=== PATIENT | female | born 1970 | race Caucasian/White ===

== ENCOUNTER 2017-04-15 19:57 | Emergency (ER) ==
[2017-04-15 20:07] VITALS: BP 106/81; TEMP 98; BMI 29.2
[2017-04-15] MEDS ORDERED: SODIUM CHLORIDE 1,000 ML IV STA (20:20)
[2017-04-15] MEDS ORDERED: PROTONIX IV IVP STA (20:20)
[2017-04-15] MEDS ORDERED: ZOFRAN 4 MG/2 ML IVP STA (20:21)
[2017-04-15] MEDS ORDERED: DILAUDID 1 MG/ML SYRINGE IVP STA ×2 (20:27→22:29)
--- NOTE | 2017-04-15 20:32 | ED.PDOC ---
General ED Provider: Dr. JOSE LARA Chief Complaint: Nausea/Vomiting Stated Complaint: Pateint is a 47 year old female with a two year history of colon cancer who has undergone chemotherapy and radiation therapy. She states that 7 days ago she started having nausea, vomiting and bloting. Vomit is foul smelling. Also complains of severe abdominal pain that is getting worse. Time Seen by Physician: 20:20 Mode of Arrival: Walk-In Information Source: Patient Exam Limitations: No limitations Primary Care Provider: BRUNILDA HARRISON Nursing and Triage Documentation Reviewed and Agree: Yes GI Complaint Exam - Abdominal Pain Complaint/Exam Onset: Gradual Duration: 1 week Symptoms Are: Still present Timing: Constant Location of Pain: Diffuse Radiates To: Reports: Back Character: Reports: Aching, Throbbing Aggravating: Reports: Movement, Food, Position, Eating Associated Signs and Symptoms: Reports: Constipation, Nausea, Vomiting Related History: Reports: Similar episode AAA Risk Factors: Reports: None Cardiac Risk Factors: Reports: None Ectopic Risk Factors: Reports: None Ovarian Torsion Risk Factors: Reports: None Surgical Obstruction Risk Factors: Reports: None Related Surgical History: Reports: None Patient Rh Status: Unknown Abdominal Findings: Present: Abdominal distention, McBur[place]'s Point tender. Absent: Rebound tenderness, Peritoneal signs, CVA Tenderness, Hernia, Inguinal swelling Differential Diagnoses: Bowel Obstruction, Constipation Review of Systems - Review Of Systems Constitutional: Reports: No symptoms Eyes: Reports: No symptoms Ears, Nose, Mouth, Throat: Reports: No symptoms Respiratory: Reports: No symptoms Cardiac: Reports: No symptoms GI: Reports: Abdominal pain, Constipated, Nausea, Vomiting : Reports: No symptoms Musculoskeletal: Reports: No symptoms Skin: Reports: No symptoms Neurological: Reports: No symptoms Endocrine: Reports: No symptoms Hematologic/Lymphatic: Reports: No symptoms All Other Systems: Reviewed and Negative Past Medical History - Past Medical History Endocrine: Reports: None Cardiovascular: Reports: None Respiratory: Reports: None Hematological: Reports: None Gastrointestinal: Reports: None Genitourinary: Reports: None Neuro/Psych: Reports: None Musculoskeletal: Reports: Back Pain Cancer: Reports: Colon Last Menstrual Period: POST MENOPAUSAL Other Pertinent Past Medical History: BACK SURGERY, C SECTION X2, GALLBLADDER, KNEE SURGERY, STAGE FOUR COLON CAN - Surgical History General Surgical History: Reports: , Orthopedic, Back Surgery, Other ( port placement on the Left upper chest.) - Family History Family History: Reports: Unknown - Social History Smoking Status: Current some day smoker Hx Substance Use: No Alcohol Screening: None - Immunizations Tetanus Shot up to Date: Yes Physical Exam - Physical Exam Appearance: Ill-appearing, Well-nourished Ill-appearing: Severe Pain Distress: Severe Eyes: HALIMA, EOMI, Conjunctiva clear ENT: Ears normal, Nose normal, Oropharynx normal Neck: Supple Respiratory: Airway patent, Breath sounds clear, Breath sounds equal, Respirations nonlabored Cardiovascular: Pulses normal, No rub, No murmur, Tachycardia GI/: No Organomegaly, Tender, Bowel sounds hyperactive Musculoskeletal: Normal strength, ROM intact, No edema, No calf tenderness Skin: Warm, Dry, Normal color Neurological: Sensation intact, Motor intact, Reflexes intact, Cranial nerves intact, Alert, Oriented Psychiatric: Anxious Interpretation - Radiology Interpretation Radiology Interpretation By: Radiologist Radiology Results: Positive Exam Interpreted: CT Scan (mets noted on the liver with calcifications. Tamia' s syndrome ) Physician Notification - Case Discussed Physician Notified: Dr Moreno Time of Notification: 22:00 (call surgery at [facility] ) Physician Notified: Dr. Goss Time of Notification: 22:40 (ok to transfer but admit to Dr. Harrison. ) Critical Care Note - Critical Care Note Total Time (mins): 15 Course - Course Hematology/Chemistry: 04/15/17 20:33 04/15/17 20:33 Orders, Labs, Meds: Lab Review 04/15/17 20:33 WBC 9.47 RBC 4.42 Hgb 11.6 L Hct 36.5 L MCV 82.6 MCH 26.2 L MCHC 31.8 RDW Coeff of Dawna 17.6 H Plt Count 516 H Immature Gran % (Auto) 0.6 Neut % (Auto) 74.7 Lymph % (Auto) 14.7 Gilchrist % (Auto) 9.5 Eos % (Auto) 0.1 Baso % (Auto) 0.4 Immature Gran # (Auto) 0.1 Neut # 7.1 H Lymph # 1.4 Gilchrist # 0.9 Eos # 0.0 Baso # 0.0 Sodium 134 L Potassium 3.0 L Chloride 92 L Carbon Dioxide 27 Anion Gap 18.0 BUN 20 H Creatinine 0.69 Estimated GFR (MDRD) 91.00 BUN/Creatinine Ratio 28.98 Glucose 119 H Calcium 9.8 Total Bilirubin 0.48 AST 29 ALT 13 Alkaline Phosphatase 123 H Total Protein 7.5 Albumin 2.6 L Globulin 4.9 Albumin/Globulin Ratio 0.53 Amylase 14 L Lipase 19 Orders Category Date Time Status ED IV/MEDIPORT/POWERPORT .ONCE EMERGENCY 04/15/17 20:20 Active AMYLASE Stat LAB 04/15/17 20:33 Completed CBC W/ AUTO DIFF Stat LAB 04/15/17 20:33 Completed COMPREHENSIVE METABOLIC PANEL Stat LAB 04/15/17 20:33 Completed LIPASE Stat LAB 04/15/17 20:33 Completed URINALYSIS C & S IF INDICATED Stat LAB 04/15/17 20:20 Uncollected 0.9 % Sodium Chloride [Saline Flush] MEDS 04/15/17 20:20 Ordered 1 syr IVF PRN PRN Hydromorphone HCl [Dilaudid 1 mg/ml Syringe] MEDS 04/15/17 20:27 Discontinued 1 mg IVP ONCE STA Hydromorphone HCl [Dilaudid 1 mg/ml Syringe] MEDS 04/15/17 22:29 Stat 1 mg IVP ONCE STA Ondansetron HCl/Pf [Zofran 4 mg/2 ml] MEDS 04/15/17 20:21 Discontinued 4 mg IVP ONCE STA Pantoprazole Sodium [Protonix IV] MEDS 04/15/17 20:20 Discontinued 40 mg IVP ONCE STA Ringers Lactated Solution [Lactated Ringers] 1,000 ml MEDS 04/15/17 22:41 Ordered Potassium Chloride Additive [Potassium Chloride 10 Meq Vial-Additive Only] 20 meq IV 125 mls/hr Sodium Chloride 0.9% [Sodium Chloride] 1,000 ml MEDS 04/15/17 20:[address] ABD/PEL WO RENAL STONE PROT Stat RADS 04/15/17 20:20 Completed Medications Generic Name Dose Route Start Last Admin Trade Name Freq PRN Reason Stop Dose Admin Potassium Chloride 20 meq/ 1,010 mls @ 125 mls/hr 04/15/17 22:41 Lactated Ringer's IV 04/16/17 06:45 .[id number] STA Sodium Chloride 1 syr 04/15/17 20:20 Saline Flush IVF PRN PRN To flush IV Discontinued Medications Generic Name Dose Route Start Last Admin Trade Name Freq PRN Reason Stop Dose Admin Hydromorphone HCl 1 mg 07/26/17 20:27 04/15/17 20:40 Dilaudid 1 Mg/Ml Syringe IVP 04/15/17 20:28 1 mg ONCE STA Administration Hydromorphone HCl 1 mg 04/15/17 22:29 Dilaudid 1 Mg/Ml Syringe IVP 04/15/17 22:30 ONCE STA Sodium Chloride 1,000 mls @ 1,000 mls/hr 04/15/17 20:20 04/15/17 20:41 Sodium Chloride IV 04/15/17 21:19 1,000 mls/hr BOLUS STA Administration Ondansetron HCl 4 mg 04/15/17 20:21 04/15/17 20:41 Zofran 4 Mg/2 Ml IVP 04/15/17 20:22 4 mg ONCE STA Administration Pantoprazole Sodium 40 mg 04/15/17 20:20 04/15/17 20:40 Protonix Iv IVP 04/15/17 20:21 40 mg ONCE STA Administration Vital Signs: Temp Pulse Resp BP Pulse Ox 04/15/17 19:57 98.0 F 124 H 20 106/81 92 L Departure - Departure Time of Disposition: 22:46 Disposition: TSF SHORT-TRM HOSP Discharge Problem: Tamia's syndrome Condition: Fair Pt referred to PMD for follow-up: Yes Allergies/Adverse Reactions: Allergies morphine Adverse Reaction (Severe, Verified 04/15/17 20:06) Abdominal Pain Home Medications: Ambulatory Orders Alprazolam [Xanax] 1 mg PO DAILY 04/15/17 Ondansetron HCl [Zofran] 4 mg PO DAILY 04/15/17 Oxycodone HCl/Acetaminophen [Percocet 10-325 mg Tablet] 10 mg PO DAILY 04/15/17 Promethazine HCl [Phenergan Tab] 25 mg PO DAILY 04/15/17 Pt. Stabilized Within Hospital's Capabilities/Transferred To: [facility] Transfer Form Completed: Yes Disposition Discussed With: Patient, Family
[2017-04-15 20:40] LABS: BASOPHILS % (AUTO) 0.4 % (0.0-3.0); EOSINOPHILS % (AUTO) 0.1 % (0.0-7.0); HEMATOCRIT 36.5 % (37.0-47.0); HEMOGLOBIN 11.6 g/dl (12.0-16.0); IMMATURE GRANULOCYTE % (AUTO) 0.6 % (0.0-5.0); LYMPHOCYTES # (AUTO) 1.4 K/uL (0.60-3.4); LYMPHOCYTES % (AUTO) 14.7 (10.0-50.0); MEAN CORPUSCULAR HEMOGLOBIN 26.2 pg (27.0-31.0); MEAN CORPUSCULAR HGB CONC 31.8 (31.8-35.4); MEAN CORPUSCULAR VOLUME 82.6 fl (81.0-99.0); MONOCYTES # (AUTO) 0.9 K/uL (0.4-2.0); MONOCYTES % (AUTO) 9.5 (0-10); NEUTROPHILS # (AUTO) 7.1 K/ul (2.0-6.9); NEUTROPHILS % (AUTO) 74.7; PLATELET COUNT 516 10^3/uL (140-440); RED BLOOD COUNT 4.42 10^6/ul (4.20-5.40); WHITE BLOOD COUNT 9.47 K/ul (4.6-10.2)
--- NOTE | 2017-04-15 21:36 | CT ---
Exam: CT scan of the abdomen pelvis without contrast. Date: 04/15/2017. Comparison: 09/15/2014. HISTORY: Abdominal pain. History of stage IV colon cancer. TECHNIQUE: Helical scan of the abdomen pelvis was performed without contrast. There are multiple bilateral noncalcified pulmonary nodules, with the largest in the posterior basil ar segment right lower lobe measuring 1.8 x 1.7 cm. There is mild atelectasis in the left lung base . The posterior interbody fusion is present at L5-S1. The bony pelvis is within normal limits. Ascites is present. The spleen and liver have a uniform attenuation, with a 2.6 x 2.3 cm calcificat ion in the left lobe of the liver have a similar round calcification in the posterior segment right lobe that measures 3.0 x 2.0 cm with additional scattered calcifications also present in the posteri or segment right lobe. A cholecystectomy is noted. The stomach, pancreas and adrenal glands are no rmal. 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 No retroperitoneal adenopathy is prese nt. Aorta does not exceed 3 cm. There are multiple subcentimeter nodules and interstitial thickeni ng involving the bowel omentum. The small bowel is normal. The cecum and ascending colon are diste nded with fecal material with transverse diameter measuring up to 8.3 cm. There is also distension of the transverse colon with air and fecal material, measuring up to 6.4 cm. Distension of the desc ending colon is also present with transverse diameter of 5.6 cm. There is distension of the sigmoid colon which measures up to 5.7 cm. This distension extends to the proximal sigmoid colon; the mid sigmoid colon to the rectum has a more normal caliber and fecal material is present as well in these areas. The pelvic sidewall and bladder are normal. There is a small amount of free fluid in the p lorraine. The rectum and inguinal regions are normal. Impression: The patient has a history of stage IV colon cancer with multiple calcifications in the liver, compatible with calcified hepatic metastases. In addition there are multiple pulmonary nodule s that range in size up to 1.8 cm although the entire thorax was not included. Finally, there are p robable diffuse peritoneal implants. There is a small amount of ascites which may be related to the peritoneal implants. There is distension of the colon, from the cecum to the proximal sigmoid colon with air and fecal ma terial. The caliber of the colon measures up to 8.3 cm but without visible obstruction. 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 The patient should be considered a t increased risk for spontaneous perforation. Given the quantity of fecal material throughout the co asim, coexistent constipation/fecal impaction may be present. Cholecystectomy and hysterectomy.
[2017-04-15 21:38] LABS: ALBUMIN 2.6 g/dL (3.4-5.0); ALBUMIN/GLOBULIN RATIO 0.53; BILIRUBIN,TOTAL 0.48 mg/dL (0.00-1.20); BUN/CREATININE RATIO 28.98; CALCIUM 9.8 mg/dL (8.2-10.2); CREATININE 0.69 mg/dL (0.60-1.30); TOTAL PROTEIN 7.5 g/dL (6.4-8.2)
[2017-04-15] MEDS ORDERED: POTASSIUM CHLORIDE 10 MEQ VIAL-ADDITIVE ONLY 40 MEQ in SODIUM CHLORIDE 1,000 ML IV STA (22:27)
[2017-04-15] MEDS ORDERED: LACTATED RINGERS 1,000 ML IV STA (22:35)
[2017-04-15] MEDS ORDERED: LACTATED RINGERS IV STA (22:41)
[2017-04-15] MEDS ORDERED: POTASSIUM CHLORIDE IV STA (22:41)
[2017-04-15] MEDS ORDERED: ADDITIVE ONLY IV STA (22:41)
[2017-04-15] MEDS ORDERED: POTASSIUM CHLORIDE 20 MEQ VIAL-ADDITIVE ONLY IV ONE (22:58)
== END 2017-04-16 00:31 | disposition short-term general hospital (02) ==
LOC: ED 19:57
DX: K56.69 Other intestinal obstruction (principal); R11.2 Nausea with vomiting, unspecified; C18.9 Malignant neoplasm of colon, unspecified; F17.210 Nicotine dependence, cigarettes, uncomplicated
CPT/HCPCS: 36415; 74176; 80053; 82150; 83690; 85025; 96361; 96374; 96375; 96376; 99285